=== PATIENT | female | born 1930 ===

== ENCOUNTER 2018-04-11 12:26 | Inpatient (IN) | payer OTHER ==
[~2018-04-11] VITALS: Ht 152.4 cm; Wt 58.5 kg
[2018-04-11] MEDS ORDERED: ALDACTONE50 MG PO (13:31)
[2018-04-11] MEDS ORDERED: ASPIR 8181 MG (13:32)
[2018-04-11] MEDS ORDERED: HYDROCHLOROTHIA25 MG PO (13:32)
[2018-04-11] MEDS ORDERED: LIPITOR40 MG PO (13:35)
== END 2018-04-13 21:37 | disposition expired | DRG 292 ==
LOC: ER 12:26 → MEDJ 16:51 → ICU-2 16:51
PROVIDERS: ADMIT Internal Medicine
PROC: B246ZZZ Ultrasonography of Right and Left Heart (ICD-10-PCS; principal; 2018-04-11)
PROC: 4A033R1 Measurement of Arterial Saturation, Peripheral, Percutaneous Approach (ICD-10-PCS; 2018-04-11)
PROC: BW40ZZZ Ultrasonography of Abdomen (ICD-10-PCS; 2018-04-11)
PROC: 4A12X4Z Monitoring of Cardiac Electrical Activity, External Approach (ICD-10-PCS; 2018-04-13)
DX: I11.0 Hypertensive heart disease with heart failure (principal); N39.0 Urinary tract infection, site not specified; I24.9 Acute ischemic heart disease, unspecified; I50.43 Acute on chronic combined systolic (congestive) and diastolic (congestive) heart failure; R57.0 Cardiogenic shock